=== PATIENT | female | born 1990 | race Caucasian/White ===

== ENCOUNTER 2019-03-23 06:00 | Day surgery (SDC) | payer OTHER ==
[~2019-03-23] VITALS: Ht 172.7 cm; Wt 74.8 kg
--- NOTE | ~2019-03-23 | OR ---
[facility] [address], [place] [address] Draft DATE OF OPERATION: 03/23/2019 SURGEON: Monica Iyer MD PREOPERATIVE DIAGNOSES: 1. Menometrorrhagia. 2. Endometrial polys. POSTOPERATIVE DIAGNOSES: 1. Menometrorrhagia. 2. Endometrial polys. PROCEDURE: Hysteroscopy with resection of polyps. ANESTHESIA: MAC with paracervical block. ESTIMATED BLOOD LOSS: Minimal. DRAINS: None. INDICATIONS AND FINDINGS: The patient is a 28-year-old female, 1, currently on control pills, who has been having recent abnormal bleeding despite taking her pills consistently inappropriately. Ultrasound was done, which revealed probable endometrial polyps. At the time of surgery, exam under anesthesia was normal. Uterus sounded 8 cm. On evaluation of the cavity, there were multiple small polyps. DESCRIPTION OF PROCEDURE: The patient was prepped and draped in the dorsal lithotomy position. A weighted speculum was placed. The anterior lip of the cervix was visualized and grasped with a single-tooth tenaculum. A paracervical block was placed using 5 mL of 0.5% Marcaine plain, placed at 3 o'clock and 9 o'clock. Following this, the cavity was sounded to 8 cm. The endocervical canal was then dilated with minimal difficulty to 7 dilator. MyoSure device was then placed. Evaluation of the cavity showed that there were small polyps present. The MyoSure Lite was then introduced and these polyps were removed. Following this, the cavity appeared smooth and regular. The procedure was terminated PATIENT NAME: CYNTHIA ZIMMER OPERATIVE REPORT DATE OF : [birth year] REPORT #: [id number] PHYSICIAN: MONICA IYER MD PCP: NEMESIO ALVES DO REPORT IS CONFIDENTIAL AND NOT TO BE RELEASED WITHOUT AUTHORIZATION [address] [address] Draft with removal of the instruments. The cervix was evaluated after removal of the tenaculum. There was no evidence of any ongoing bleeding. The patient was then taken to the recovery room in good condition. MD EUGENE Colón/MODL /[id number] cc: Nemesio Alves DO Copies: NEMESIO ALVES DO ~ PATIENT NAME: CYNTHIA ZIMMER OPERATIVE REPORT DATE OF : [birth year] REPORT #: [id number] PHYSICIAN: MONICA IYER MD PCP: NEMESIO ALVES DO REPORT IS CONFIDENTIAL AND NOT TO BE RELEASED WITHOUT AUTHORIZATION
[~2019-03-23 06:00] MED LIST: ELINEST1 EACH PO; LOSARTAN POTASS25 MG PO; PRILOSEC OTC20 MG PO; RITUXAN10 MG/1 ML IV; VITAMIN D32000 UNI1 PO; ZEMPLAR1 MCG PO
--- NOTE | 2019-03-23 07:54 | NUR ---
03/23/19 0754 Lizeth Nation 9100-PATIENT ARRIVED TO PACU ON RA RR EVEN. NONAROUSABLE. SR. MARICRUZ PAD TO VAGINAL AREA CDI.
[2019-03-23] MEDS ORDERED: NORCO 5-325 TA1 EACH PO (08:09)
[2019-03-23] MEDS ORDERED: TYLENOL325 MG PO (08:10)
--- NOTE | 2019-03-23 10:12 | NUR ---
PT HAD ALREADY BEEN TAKEN TO SURGERY, HER MOTHER WAS WAITING EXPECTANTLY IN PTS' RM. HAD GOOD VISIT WITH MOTHER, SHE IS A LITTLE ANXIOUS. ENCOURAGEMENT WAS GIVEN, WILL FOLLOW NEEDED
--- NOTE | 2019-03-28 13:38 | PATH ---
[facility] [address] [place], [place] [address] Signed SPECIMEN(S): A ENDOMETRIAL POLYPS SPECIMEN SOURCE: A. ENDOMETRIAL POLYPS CLINICAL HISTORY: Menometrorrhagia; endometrial polyp. FINAL PATHOLOGIC DIAGNOSIS: Uterus, endometrium, curettage: - Endometrial polyp. - Small fragments of endocervical polyp. - Background endometrium-- weakly proliferative phase. - Negative for hyperplasia, atypia, and malignancy. As part of [employer] inspector quality assurance program this case has been reviewed by another member of our pathology staff. ISAIASA:NRT:cml:C2NR MICROSCOPIC EXAMINATION: Histologic sections of all submitted blocks are examined by light microscopy. These findings, together with the gross examination, support the pathologic diagnosis. Immunostain for CD10 is obtained along with an appropriately positive control. Results support the above diagnoses. GROSS DESCRIPTION: The specimen is received in a formalin filled specimen container labeled "TF". An aggregate of donald tissue admixed with hemorrhagic material is 1.5 x 0.8 x 0.4 cm and entirely submitted in cassette A1. GW (under the direct supervision of a pathologist) The Gross Description was prepared using a voice recognition system. The report was reviewed for accuracy; however, sound-alike word errors, addition and/or deletions may occur. If there is any question about this report, please contact Client Services. PERFORMING LABORATORY: The technical component was performed by [employer], [address] [place] [id number] (Car Rental Service Attendant: Kristina Monzon MD; CLIA# [id number]). Professional interpretation was performed by [employer], [facility], [address] [facility]. 107, PATIENT NAME: CYNTHIA ZIMMER PATHOLOGY DATE OF : [birth year] REPORT #: [id number] PHYSICIAN: CHAUNCEYYTE PATHOLOGY PCP: IDALIA ALVES DO REPORT IS CONFIDENTIAL AND NOT TO BE RELEASED WITHOUT AUTHORIZATION [facility] [address] [facility] [place], [place] [address] Signed [place] [address] (Car Rental Service Attendant: Nito Milian MD; CLIA# [id number]). Diagnostician: Nito Milian MD Pathologist Electronically Signed 03/28/2019 Copies: ~ PATIENT NAME: CYNTHIA ZIMMER PATHOLOGY DATE OF : [birth year] REPORT #: [id number] PHYSICIAN: CHAUNCEYYTE PATHOLOGY PCP: IDALIA ALVES DO REPORT IS CONFIDENTIAL AND NOT TO BE RELEASED WITHOUT AUTHORIZATION
== END 2019-03-23 08:45 | disposition home or self-care (01) ==
LOC: OPS 06:00 → DS 06:00
PROVIDERS: Obstetrics & Gynecology
PROC: 0UB98ZZ Excision of Uterus, Via Natural or Artificial Opening Endoscopic (ICD-10-PCS; principal; 2019-03-23 06:45)
DX: N84.0 Polyp of corpus uteri (principal); I12.9 Hypertensive chronic kidney disease with stage 1 through stage 4 chronic kidney disease, or unspecified chronic kidney disease; N18.4 Chronic kidney disease, stage 4 (severe); G43.009 Migraine without aura, not intractable, without status migrainosus; M31.31 Wegener's granulomatosis with renal involvement; N94.810 Vulvar vestibulitis; Z79.899 Other long term (current) drug therapy; N76.0 Acute vaginitis; Z88.8 Allergy status to other drugs, medicaments and biological substances
CPT/HCPCS: 00952; J2250; J2405; J2704; J2765; J7121